=== PATIENT | female | born 1975 | race Caucasian/White ===

== ENCOUNTER → 2016-11-29 | Outpatient (CLI) | payer MEDICAID ==
[2016-11-29 07:52] LABS: ABSOLUTE EOSINOPHILS # (AUTO) 0.2 10^3/uL (0.0-0.6); ABSOLUTE LYMPHOCYTES (AUTO) 1.5 10^3/uL (0.5-4.7); ABSOLUTE MONOCYTES (AUTO) 0.4 10^3/uL (0.1-1.4); ABSOLUTE NEUT (AUTO) 3.5 10^3/uL (1.7-8.2); APPEARANCE,URINE CLEAR; BASOPHILS % (AUTO) 0.9 % (0-2); BILIRUBIN,URINE NEGATIVE (NEGATIVE); EOSINOPHILS % (AUTO) 4.3 % (0-6); GLUCOSE, URINE NEGATIVE (NEGATIVE); HEMATOCRIT 42.7 % (36.0-47.0); HEMOGLOBIN 14.3 g/dL (12.0-15.5); HGB HCT DIFFERENCE 0.2; KETONES,URINE NEGATIVE (NEGATIVE); LEUKOCYTE ESTERASE,URINE NEGATIVE (NEGATIVE); LYMPHOCYTES % (AUTO) 25.6 % (13-45); MEAN CORPUSCULAR HEMOGLOBIN 33.3 pg (27.0-33.4); MEAN CORPUSCULAR HGB CONC 33.4 g/dL (32.0-36.0); MEAN CORPUSCULAR VOLUME 100 fl (80-97); MONOCYTES % (AUTO) 7.6 % (3-13); NITRITE,URINE NEGATIVE (NEGATIVE); PROTEIN,URINE NEGATIVE (NEGATIVE); RED BLOOD COUNT 4.29 10^6/uL (3.72-5.28); RED CELL DISTRIBUTION WIDTH 12.8 % (11.5-14.0); SEGMENTED NEUTROPHILS % (AUTO) 61.6 % (42-78); URINE SPECIFIC GRAVITY 1.003; UROBILINOGEN,URINE NEGATIVE mg/dL (<2.0); WHITE BLOOD COUNT 5.7 10^3/uL (4.0-10.5)
[2016-11-29 08:13] LABS: ALBUMIN 3.9 g/dL (3.5-5.0); ANION GAP 11 (5-19); BLOOD UREA NITROGEN 23 mg/dL (7-20); CALCIUM 9.9 mg/dL (8.4-10.2); CARBON DIOXIDE 25 mmol/L (22-30); CHLORIDE 106 mmol/L (98-107); CREATININE RESULT 1.27 mg/dL (0.52-1.25); GLUCOSE 100 mg/dL (75-110); PHOSPHORUS 3.4 mg/dL (2.5-4.5); POTASSIUM 4.5 mmol/L (3.6-5.0); SODIUM 142.4 mmol/L (137-145)
[2016-11-30 10:49] LABS: VITAMIN D 25-HYDROXY 49.1 ng/mL (30.0-100.0)
[2016-11-30 11:38] LABS: CREATININE URINE 19.5 mg/dL (Not Estab.); MICROALBUMIN URINE 6.3 ug/mL (Not Estab.)
== END ==
LOC: OD 07:06
PROVIDERS: ATTEND Internal Medicine Nephrology
DX: N18.3 Chronic kidney disease, stage 3 (moderate) (principal); R35.0 Frequency of micturition
CPT/HCPCS: 36415; 80048; 81001; 82040; 82043; 82306; 82570; 83970; 84100; 85025

== ENCOUNTER → 2017-05-28 | Outpatient (CLI) | payer MEDICAID ==
[2017-05-28 09:22] LABS: ANION GAP 11 (5-19); BLOOD UREA NITROGEN 13 mg/dL (7-20); CALCIUM 9.4 mg/dL (8.4-10.2); CARBON DIOXIDE 22 mmol/L (22-30); CHLORIDE 109 mmol/L (98-107); CREATININE RESULT 1.05 mg/dL (0.52-1.25); GLUCOSE 92 mg/dL (75-110); POTASSIUM 4.6 mmol/L (3.6-5.0); SODIUM 142.4 mmol/L (137-145)
== END ==
LOC: OD 07:04
PROVIDERS: ATTEND Internal Medicine
DX: N18.3 Chronic kidney disease, stage 3 (moderate) (principal)
CPT/HCPCS: 36415; 80048

== ENCOUNTER → 2017-11-28 | Outpatient (CLI) | payer MEDICAID ==
[2017-11-28 08:23] LABS: ABSOLUTE EOSINOPHILS # (AUTO) 0.2 10^3/uL (0.0-0.6); ABSOLUTE LYMPHOCYTES (AUTO) 1.7 10^3/uL (0.5-4.7); ABSOLUTE MONOCYTES (AUTO) 0.5 10^3/uL (0.1-1.4); ABSOLUTE NEUT (AUTO) 4.4 10^3/uL (1.7-8.2); BASOPHILS % (AUTO) 0.6 % (0-2); EOSINOPHILS % (AUTO) 2.9 % (0-6); HEMOGLOBIN 13.8 g/dL (12.0-15.5); LYMPHOCYTES % (AUTO) 24.8 % (13-45); MEAN CORPUSCULAR HEMOGLOBIN 33.1 pg (27.0-33.4); MEAN CORPUSCULAR HGB CONC 33.7 g/dL (32.0-36.0); MEAN CORPUSCULAR VOLUME 98 fl (80-97); MONOCYTES % (AUTO) 7.3 % (3-13); PLATELET COUNT 209 10^3/uL (150-450); RED BLOOD COUNT 4.18 10^6/uL (3.72-5.28); RED CELL DISTRIBUTION WIDTH 13.3 % (11.5-14.0); SEGMENTED NEUTROPHILS % (AUTO) 64.4 % (42-78); TOTAL CELLS COUNTED % (AUTO) 100 %; WHITE BLOOD COUNT 6.8 10^3/uL (4.0-10.5)
[2017-11-28 08:47] LABS: APPEARANCE,URINE CLEAR; BILIRUBIN,URINE NEGATIVE (NEGATIVE); COLOR,URINE COLORLESS; GLUCOSE, URINE NEGATIVE (NEGATIVE); KETONES,URINE NEGATIVE (NEGATIVE); LEUKOCYTE ESTERASE,URINE NEGATIVE (NEGATIVE); NITRITE,URINE NEGATIVE (NEGATIVE); PROTEIN,URINE NEGATIVE (NEGATIVE); URINE SPECIFIC GRAVITY 1.002; UROBILINOGEN,URINE NEGATIVE mg/dL (<2.0)
[2017-11-28 08:49] LABS: ALBUMIN 4.1 g/dL (3.5-5.0); ANION GAP 8 (5-19); BLOOD UREA NITROGEN 17 mg/dL (7-20); CARBON DIOXIDE 26 mmol/L (22-30); CHLORIDE 108 mmol/L (98-107); GLUCOSE 91 mg/dL (75-110); PHOSPHORUS 3.9 mg/dL (2.5-4.5); POTASSIUM 4.8 mmol/L (3.6-5.0); SODIUM 141.9 mmol/L (137-145)
[2017-11-29 11:38] LABS: CREATININE URINE 15.3 mg/dL (Not Estab.); MICROALBUMIN URINE <3.0 ug/mL (Not Estab.)
== END ==
LOC: OD 07:53
PROVIDERS: ATTEND Internal Medicine Nephrology
DX: N05.9 Unspecified nephritic syndrome with unspecified morphologic changes (principal); N18.3 Chronic kidney disease, stage 3 (moderate)
CPT/HCPCS: 36415; 80048; 81001; 82040; 82043; 82306; 82570; 83970; 84100; 85025

== ENCOUNTER → 2018-05-26 | Outpatient (CLI) | payer MEDICAID ==
[2018-05-26 10:04] LABS: ANION GAP 12 (5-19); BLOOD UREA NITROGEN 24 mg/dL (7-20); CALCIUM 9.8 mg/dL (8.4-10.2); CARBON DIOXIDE 27 mmol/L (22-30); CHLORIDE 109 mmol/L (98-107); GLUCOSE 101 mg/dL (75-110); POTASSIUM 4.5 mmol/L (3.6-5.0); SODIUM 148.2 mmol/L (137-145)
== END ==
LOC: OD 07:56
PROVIDERS: ATTEND Internal Medicine Nephrology
DX: N18.3 Chronic kidney disease, stage 3 (moderate) (principal)
CPT/HCPCS: 36415; 80048

== ENCOUNTER → 2018-12-30 | Outpatient (CLI) | payer OTHER ==
[2018-12-30 16:26] LABS: ALANINE AMINOTRANSFERASE 26 U/L (9-52); ALBUMIN 4.2 g/dL (3.5-5.0); ALKALINE PHOSPHATASE 124 U/L (38-126); ANION GAP 6 (5-19); ASPARTATE AMINO TRANSFERASE 22 U/L (14-36); BILIRUBIN,DIRECT 0.2 mg/dL (0.0-0.4); BILIRUBIN,TOTAL 0.2 mg/dL (0.2-1.3); BLOOD UREA NITROGEN 12 mg/dL (7-20); CALCIUM 9.8 mg/dL (8.4-10.2); CARBON DIOXIDE 29 mmol/L (22-30); CHLORIDE 102 mmol/L (98-107); GLUCOSE 87 mg/dL (75-110); POTASSIUM 4.3 mmol/L (3.6-5.0); SODIUM 137.4 mmol/L (137-145); TOTAL PROTEIN 6.9 g/dL (6.3-8.2)
== END ==
LOC: OD 14:36
DX: F25.9 Schizoaffective disorder, unspecified (principal); N18.3 Chronic kidney disease, stage 3 (moderate); Z99.81 Dependence on supplemental oxygen; F41.8 Other specified anxiety disorders; G47.30 Sleep apnea, unspecified
CPT/HCPCS: 36415; 80053

== ENCOUNTER → 2018-12-30 | Outpatient (CLI) | payer OTHER ==
[~2018-12-30] MED LIST: ALBUTEROL SULFATE 0.083% NEB 2.5 MG/3 ML AMPUL NEB ONE
--- NOTE | 2019-01-04 13:59 | Pulmonary Function Test ---
Pulmonary Function Test Date of Procedure:: 01/04/19 INDICATION:: Dyspnea Referring Provider: Dr. Stephen Leyva Trench Pipe Layer: Mirna Ordoñez [employer]ER, IMMUNOCHEMIST - Report Spirometry: FVC 3.24 L 92% postbronchodilator 3.34 L 95% FEV1 1.94 L 66% postbronchodilator 2.25 L 77% FEV1/FVC % 60 postbronchodilator 68 predicted 84 FEF 25-75% 0.92 L 28% postbronchodilator 1.40 L 43% Diffusion Capactity: Diffusion capacity 22.3 72% DLCO/VA 4.40 101% Impression: Mild obstructive ventilatory defect with good response to bronchodilator therapy. Mild decrease in diffusion capacity.
== END ==
LOC: RT 12:11
DX: G47.30 Sleep apnea, unspecified (principal); F41.8 Other specified anxiety disorders
CPT/HCPCS: 94060; 94729

== ENCOUNTER 2020-05-14 15:59 | Inpatient (IN) | payer SELFPAY ==
--- NOTE | 2020-05-14 17:27 | ER Document Report ---
ED Respiratory Problem - General Chief Complaint: Shortness Of Breath Stated Complaint: SHORT OF BREATH,CONGESTION Time Seen by Provider: 05/14/20 16:54 Primary Care Provider: KACIE QUAN [NO LOCAL MD] - Follow up as needed Notes: CHIEF COMPLAINT: Shortness of breath HPI: 45-year-old female with history of cold agglutinin disease, chronic kidney disease, on home O2 at night for sleep apnea but not usually during the day presenting because she believes that she needs to use her oxygen during the day as well, is that she increase shortness of breath over the last 2 days. Does state that many years ago she had to have thoracentesis because of a pneumonia. 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 Has not had a fever recently no cough. Denies any concerns for COVID-19. ROS: See HPI - all other systems were reviewed and are otherwise negative Constitutional: no fever Eyes: no drainage, no blurred vision ENT: no runny nose, no sore throat Cardiovascular: no chest pain Resp: + SOB, no cough GI: no vomiting, no diarrhea, no abdominal pain : no dysuria Integumentary: no rash Allergy: no hives Musculoskeletal: no extremity pain or swelling Neurological: no numbness/tingling, no weakness MEDICATIONS: I agree with the patient medications as charted by the RN. ALLERGIES: I agree with the allergies as charted by the RN. PAST MEDICAL HISTORY/PAST SURGICAL HISTORY: Reviewed and agree as charted by RN. SOCIAL HISTORY: Reviewed and agree as charted by RN. FAMILY HISTORY: No significant familial comorbid conditions directly related to patient complaint EXAM: Reviewed vital signs as charted by RN. CONSTITUTIONAL: Alert and oriented and responds appropriately to questions. Well-appearing; well-nourished HEAD: Normocephalic; atraumatic EYES: PERRL; Conjunctivae clear, sclerae non-icteric ENT: normal nose; no rhinorrhea; moist mucous membranes; pharynx without lesions noted, no uvula edema or deviation, no tonsillar hypertrophy, phonation normal NECK: Supple without meningismus; non-tender; no cervical lymphadenopathy, no masses CARD: RRR; no murmurs, no clicks, no rubs, no gallops; symmetric distal pulses RESP: Normal chest excursion without splinting or tachypnea; breath sounds clear and equal bilaterally; no wheezes, no rhonchi, no rales, pulse oximetry 95% on room air not hypoxic ABD/GI: Obese, normal bowel sounds; non-distended; soft, non-tender, no rebound, no guarding; no palpable organomegaly or masses. BACK: The back appears normal and is non-tender to palpation, there is no CVA tenderness EXT: Normal ROM in all joints; non-tender to palpation; no cyanosis, no e ffusions, no edema SKIN: Normal color for age and race; warm; dry; good turgor; no acute lesions noted NEURO: Moves all extremities equally; Motor and sensory function intact PSYCH: The patient's mood and manner are appropriate. Grooming and personal hygiene are appropriate. MDM: 45-year-old female presenting for increased shortness of breath over the last 2 days. She has no COVID concerns, she is not specifically dyspneic with speaking but states she has exertional shortness of breath. Normally uses nasal cannula O2 3 L at night because of sleep apnea issues because she could not afford to have a sleep apnea test officially to get a CPAP machine. Will obtain screening cardiac labs I will add a d-dimer, chest x-ray TRAVEL OUTSIDE OF THE [place] IN LAST 30 DAYS: No - Related Data Allergies/Adverse Reactions: No Known Allergies Allergy (Unverified 11/16/12 15:38) Home Medications: Lasix, depikote, clonazapam, benzatropine, alanzapine Past Medical History - Social History Smoking Status: Unknown if Ever Smoked Family History: Reviewed & Not Pertinent Pulmonary Medical History: Reports: Hx Pneumonia Denies: Hx Tuberculosis Neurological Medical History: Denies: Hx Seizures Psychiatric Medical History: Reports: Hx Depression, Hx Schizoaffective Disorder Past Surgical History: Denies: Hx Hysterectomy, Hx Pacemaker - Immunizations Hx Pneumococcal Vaccination: 11/25/12 Physical Exam - Vital signs Vitals: Temp Pulse Resp BP Pulse Ox 98.4 F 87 20 113/67 95 05/14/20 16:07 05/14/20 16:07 05/14/20 16:07 05/14/20 16:07 05/14/20 16:07 Course - Re-evaluation Re-evalutation: 05/14/20 18:39 Patient's pulse oximetry does dip into the high 80s at 88 or 89% on room air when she is ambulating in the room. Patient's d-dimer was slightly high at 0.52, her creatinine is elevated at 2.13 discussed with the instrumentation technologist that cannot do CTA of the chest to rule out PE with a creatinine greater than 2 will need to obtain ventilation/perfusion scan, this will take several hours. Patient's other lab work does not show acute emergent abnormalities 05/14/20 23:19 There is an abnormality on the patient's ventilation/perfusion scan of the right middle lobe suggesting possible PE. I went spoke with the patient about this, on room air at rest her pulse oximetry is 87%. She does again report that over the last week she has had increasing shortness of breath episodes with any exertional activities. Discussed with attending Dr. Alvarado, will discuss with hospitalist for admission 05/14/20 23:[address] Maxwell, Hospitalist. I also spoke with the patient again. She reports mother had diabetes and father had esophageal cancer there is no family history of any clotting disorder she denies any past surgical history. Given the patient's creatinine will start patient on the heparin protocol and Dr. Maxwell will admit - Vital Signs Vital signs: Temp Pulse Resp BP Pulse Ox 97 F L 71 20 122/72 95 05/14/20 20:19 05/14/20 23:18 05/14/20 23:18 05/14/20 23:18 05/14/20 23:18 - Laboratory Result Diagrams: 05/14/20 17:34 05/14/20 17:34 Laboratory results interpreted by me: 05/14/20 05/14/20 05/14/20 17:34 17:34 17:34 RBC 3.33 L Hct 35.3 L MCV 106 H MCH 36.4 H RDW 14.1 H D-Dimer 0.52 H BUN 23 H Creatinine 2.13 H Est GFR ( Amer) 30 L Est GFR (MDRD) Non-Af 25 L Glucose 130 H Alkaline Phosphatase 137 H NT-Pro-B Natriuret Pep 05/14/20 17:34 RBC Hct MCV MCH RDW D-Dimer BUN Creatinine Est GFR ( Amer) Est GFR (MDRD) Non-Af Glucose Alkaline Phosphatase NT-Pro-B Natriuret Pep 326 H Discharge - Discharge Clinical Impression: Hypoxia Pulmonary embolism Qualifiers: Pulmonary embolism type: unspecified Chronicity: acute Acute cor pulmonale presence: unspecified Qualified Code(s): I26.99 - Other pulmonary embolism without acute cor pulmonale Condition: Fair Disposition: ADMITTED INPATIENT Admitting Provider: Hans (Hospitalist) Unit Admitted: Telemetry Referrals: [facility] [NO LOCAL MD] - Follow up as needed
[2020-05-14 17:52] LABS: ABSOLUTE EOSINOPHILS # (AUTO) 0.1 10^3/uL (0.0-0.6); ABSOLUTE LYMPHOCYTES (AUTO) 2.2 10^3/uL (0.5-4.7); ABSOLUTE MONOCYTES (AUTO) 0.8 10^3/uL (0.1-1.4); ABSOLUTE NEUT (AUTO) 4.5 10^3/uL (1.7-8.2); BASOPHILS % (AUTO) 0.3 % (0-2); EOSINOPHILS % (AUTO) 1.4 % (0-6); HEMATOCRIT 35.3 % (36.0-47.0); HEMOGLOBIN 12.1 g/dL (12.0-15.5); LYMPHOCYTES % (AUTO) 28.9 % (13-45); MEAN CORPUSCULAR HEMOGLOBIN 36.4 pg (27.0-33.4); MEAN CORPUSCULAR HGB CONC 34.3 g/dL (32.0-36.0); MEAN CORPUSCULAR VOLUME 106 fl (80-97); MONOCYTES % (AUTO) 10.8 % (3-13); PLATELET COUNT 224 10^3/uL (150-450); RED BLOOD COUNT 3.33 10^6/uL (3.72-5.28); RED CELL DISTRIBUTION WIDTH 14.1 % (11.5-14.0); SEGMENTED NEUTROPHILS % (AUTO) 58.6 % (42-78); TOTAL CELLS COUNTED % (AUTO) 100 %; WHITE BLOOD COUNT 7.6 10^3/uL (4.0-10.5)
[2020-05-14 18:08] LABS: APPEARANCE,URINE CLEAR; BILIRUBIN,URINE NEGATIVE (NEGATIVE); COLOR,URINE STRAW; GLUCOSE, URINE NEGATIVE (NEGATIVE); KETONES,URINE NEGATIVE (NEGATIVE); LEUKOCYTE ESTERASE,URINE NEGATIVE (NEGATIVE); NITRITE,URINE NEGATIVE (NEGATIVE); PROTEIN,URINE NEGATIVE (NEGATIVE); URINE SPECIFIC GRAVITY 1.003; UROBILINOGEN,URINE NEGATIVE mg/dL (<2.0)
[2020-05-14 18:15] LABS: ALBUMIN 4.3 g/dL (3.5-5.0); ALKALINE PHOSPHATASE 137 U/L (38-126); ANION GAP 9 (5-19); ASPARTATE AMINO TRANSFERASE 23 U/L (14-36); BILIRUBIN,DIRECT 0.1 mg/dL (0.0-0.4); BILIRUBIN,TOTAL 0.4 mg/dL (0.2-1.3); BLOOD UREA NITROGEN 23 mg/dL (7-20); CALCIUM 9.8 mg/dL (8.4-10.2); CARBON DIOXIDE 30 mmol/L (22-30); CHLORIDE 99 mmol/L (98-107); GLUCOSE 130 mg/dL (75-110); POTASSIUM 3.8 mmol/L (3.6-5.0); TOTAL PROTEIN 7.4 g/dL (6.3-8.2)
--- NOTE | 2020-05-14 18:24 | RADIOLOGY REPORT (SQ) ---
EXAM DESCRIPTION: CHEST SINGLE VIEW IMAGES COMPLETED DATE/TIME: 05/14/2020 5:01 pm REASON FOR STUDY: sob COMPARISON: 11/25/2012 EXAM PARAMETERS: NUMBER OF VIEWS: One view. TECHNIQUE: Single frontal radiographic view of the chest acquired. RADIATION DOSE: NA LIMITATIONS: None. FINDINGS: LUNGS AND PLEURA: There is improved aeration in both lungs. No focal consolidation or ple ural effusion. No pneumothorax. MEDIASTINUM AND HILAR STRUCTURES: No masses. Contour normal. HEART AND VASCULAR STRUCTURES: Heart normal in size. Normal vasculature. BONES: No acute findings. HARDWARE: None in the chest. OTHER: No other significant finding. IMPRESSION: No acute cardiopulmonary disease. TECHNICAL DOCUMENTATION: JOB ID: [id number] [email or web address] All Rights Reserved Reading location - IP/workstation name: [email or web address]
[2020-05-14 18:27] LABS: NT PRO BNP 326 pg/mL (<125)
[2020-05-14 18:29] LABS: TROPONIN I < 0.012 ng/mL
--- NOTE | 2020-05-14 19:16 | EKG REPORT ---
SEVERITY:- NORMAL ECG - SINUS RHYTHM : Confirmed by: Pratima Dominguez 14-May-2020 19:15:43
--- NOTE | 2020-05-14 23:09 | RADIOLOGY REPORT (SQ) ---
Perfusion lung scan: Clinical indication: 45-year old patient with hypoxia, for renal function. Comparison: Chest radiograph performed 05/14/2020. Technique: Following the intravenous injection of 5.45 mCi of technetium 99m labeled MAA, planar images of the chest were obtained in multiple projections. No ventilation imaging was obtained. Findings: There is homogeneous radiotracer distribution in the lungs on perfusion images. There is abnormal decreased radiotracer uptake seen within the right upper middle lobes which do not correspond with findings on recent chest radiograph. These are in a segmental distribution. This could represent evidence of a pulmonary artery embolism. Impression: There is abnormal decreased radiotracer uptake seen within the right upper middle lobes which do not correspond with findings on recent chest radiograph. These are in a segmental distribution. This could represent evidence of a pulmonary artery embolism.
[2020-05-14] MEDS ORDERED: HEPARIN SODIUM,PORCINE/D5W 25,000 UNIT/250 ML RTUINJ IV PRN (23:29)
[2020-05-14] MEDS ORDERED: HEPARIN SOD (PORCINE) 1,000 UNIT/ML 10 ML VIAL IV ONE (23:29)
[2020-05-14 23:43] LABS: INTERNATIONAL RATION (INR) 0.89
[2020-05-15] MEDS: HEPARIN SODIUM,PORCINE/D5W 25,000 UNIT/250 ML RTUINJ IV PRN ×2 (00:25→14:26)
[2020-05-15] MEDS ORDERED: MAG HYDROX/AL HYDROX/SIMETH SUSP 30 ML UDCUP PO PRN (00:40)
[2020-05-15] MEDS ORDERED: MAGNESIUM HYDROXIDE SUSP 30 ML UDCUP PO PRN (00:40)
[2020-05-15] MEDS ORDERED: ONDANSETRON HCL INJ/PF 4 MG/2 ML SDV IV PRN ×2 (00:40→11:00)
[2020-05-15] MEDS ORDERED: GUAIFENESIN SYRP 200 MG/10 ML UDC PO PRN (00:49)
[2020-05-15] MEDS ORDERED: LORAZEPAM INJ 2 MG/1 ML VIAL IV PRN (00:49)
[2020-05-15] MEDS ORDERED: ACETAMINOPHEN 325 MG TABLET PO PRN (00:49)
[2020-05-15] MEDS ORDERED: MELATONIN 5 MG TABLET PO PRN ×2 (00:49→01:30)
[2020-05-15] MEDS ORDERED: MORPHINE SULFATE 10 MG/ML INJ IV PRN ×4 (00:49→01:52)
[2020-05-15] MEDS: RINGERS SOLUTION,LACTATED 1,000 ML IV PRN ×4 (01:12→22:17)
[2020-05-15] MEDS ORDERED: HEPARIN SOD (PORCINE) 1,000 UNIT/ML 10 ML VIAL IV PRN (03:39)
[2020-05-15] MEDS: PANTOPRAZOLE SODIUM 40 MG TABLET.DR PO SCH (05:54)
--- NOTE | 2020-05-15 05:59 | PDOC H&P ---
History of Present Illness Admission Date/PCP: 05/14/20 23:47 No local PCP Patient complains of: Dyspnea History of Present Illness: KENJI CHESTER is a 45 year old female who presented the emergency room with a 2- day history of dyspnea. She admits progressively worsening dyspnea over the last 2 days, becoming severe today. Her dyspnea is worsened by exertion. Her dyspnea did improve modestly with use of her nighttime oxygen on a continuous basis during the day. She denies any associated or accompanying signs and symptoms. She denies prior similar episodes. She has not identified any additional aggravating or ameliorating factors for her dyspnea. In the emergency room she was found to have a VQ scan which showed a right middle lobe ventilation/perfusion mismatch highly suspicious for an acute pulmonary embolism. She was subsequently admitted to the hospital for further evaluation and treatment after initiation of the heparin protocol in the emergency room. Past Medical History Cardiac Medical History: Denies: Atrial Fibrillation, Coronary Artery Disease, DVT, Hyperlipidema, Hypertension, Pulmonary Embolism Pulmonary Medical History: Reports: Pneumonia, Sleep Apnea Denies: Asthma, Chronic Obstructive Pulmonary Disease (COPD), Tuberculosis EENT Medical History: Denies: Cataracts, Ears - Hearing aids Neurological Medical History: Denies: Multiple Sclerosis, Seizures Endocrine Medical History: Reports: Obesity Denies: Diabetes Mellitus Type 1, Diabetes Mellitus Type 2, Hyperthyroidism, Hypothyroidism Renal/ Medical History: Reports: Chronic Kidney Disease Denies: Nephrolithiasis Malignancy Medical History: Reports: None GI Medical History: Denies: Cirrhosis, Crohn's Disease, Gastroesophageal Reflux Disease, Hepatitis, Peptic Ulcer Disease, Ulcerative Colitis Musculoskeltal Medical History: Denies: Arthritis, Fibromyalgia Skin Medical History: Denies: Eczema, Psoriasis Psychiatric Medical History: Reports: Depression, Schizoaffective Disorder Denies: Alcohol Dependency, Substance Abuse, Tobacco Dependency Traumatic Medical History: Reports: None Hematology: Reports: Anemia, Other - Positive for cold agglutinins Denies: Bleeding Tendencies Infectious Medical History: Reports: None Past Surgical History Past Surgical History: Reports: Other - Thoracentesis Social History Information Source: Patient Lives with: Spouse/Significant other Smoking Status: Former Smoker Electronic Cigarette use?: No Hx Recreational Drug Use: No Drugs: None Hx Prescription Drug Abuse: No - Advance Directive Resuscitation Status: Full Code Surrogate healthcare decision maker:: Jacqueline Fung Family History Family History: denies: CAD, DM, Hypertension, Malignancy Parental Family History Reviewed: Yes Children Family History Reviewed: No Sibling(s) Family History Reviewed.: Yes Medication/Allergy Home Medications: Benztropine Mesylate [Cogentin 1 mg Tablet] 1 mg PO QHS 11/16/12 Divalproex Sodium [Depakote] 200 mg PO BID 11/16/12 Lamotrigine [Lamictal] 200 mg PO BID 11/16/12 [place] Carbonate 300 mg PO TID 11/16/12 Olanzapine [Zyprexa] 15 mg PO QHS 11/16/12 Propranolol HCl [Inderal 10 mg Tablet] 10 mg PO DAILY 11/17/12 Levofloxacin [Levaquin 750 mg Tablet] 750 mg PO DAILY #10 tablet 11/25/12 Allergies/Adverse Reactions: No Known Allergies Allergy (Unverified 11/16/12 15:38) Review of Systems Constitutional: ABSENT: chills, fever(s) Eyes: ABSENT: visual disturbances, other - Eye pain Ears: ABSENT: hearing changes, other - Ear pain Nose, Mouth, and Throat: ABSENT: headache(s), sore throat Cardiovascular: PRESENT: as per HPI, dyspnea on exertion. ABSENT: chest pain, edema, orthropnea, palpitations Respiratory: PRESENT: as per HPI, dyspnea. ABSENT: cough, hemoptysis, sputum Gastrointestinal: ABSENT: abdominal pain, constipation, diarrhea, nausea, vomiting Genitourinary: ABSENT: dysuria, hematuria Musculoskeletal: ABSENT: back pain, joint swelling Integumentary: ABSENT: pruritus, rash Neurological: ABSENT: confusion, convulsions, focal weakness, memory loss, syncope Psychiatric: ABSENT: anxiety, depression Endocrine: ABSENT: cold intolerance, heat intolerance Hematologic/Lymphatic: ABSENT: easy bleeding, easy bruising Allergic/Immunologic: ABSENT: seasonal rhinorrhea Physical Exam Vital Signs: Temp Pulse Resp BP Pulse Ox 97 F L 71 18 135/70 H 95 05/14/20 20:19 05/14/20 23:18 05/14/20 23:25 05/14/20 23:25 05/14/20 23:25 Intake & Output 05/13/20 05/14/20 05/15/20 23:59 23:59 23:59 Weight 130.635 kg General appearance: PRESENT: no acute distress, cooperative, morbidly obese, other - On supplemental oxygen at the time of my evaluation Head exam: PRESENT: atraumatic, normocephalic Eye exam: PRESENT: conjunctiva pink. ABSENT: conjunctival injection, scleral icterus Ear exam: PRESENT: normal external ear exam. ABSENT: bleeding, drainage Mouth exam: PRESENT: dry mucosa, neck supple Neck exam: ABSENT: thyromegaly, tracheal deviation Respiratory exam: PRESENT: clear to auscultation gopal, symmetrical, unlabored, other - On supplemental oxygen at time of my evaluation Cardiovascular exam: PRESENT: RRR. ABSENT: clicks, gallop, rubs Pulses: PRESENT: normal radial pulses, normal dorsalis pedis pul Vascular exam: PRESENT: normal capillary refill. ABSENT: pallor GI/Abdominal exam: PRESENT: normal bowel sounds, soft. ABSENT: tenderness Rectal exam: PRESENT: deferred Extremities exam: ABSENT: joint swelling, pedal edema Musculoskeletal exam: ABSENT: deformity, dislocation Neurological exam: PRESENT: alert, oriented to person, oriented to place, oriented to time, oriented to situation, CN II-XII grossly intact. ABSENT: motor sensory deficit Psychiatric exam: PRESENT: appropriate affect, normal mood Skin exam: PRESENT: dry, intact, warm. ABSENT: jaundice, rash, urticaria Results Laboratory Results: 05/14/20 17:34 05/14/20 17:34 05/14/20 05/14/20 05/14/20 17:34 17:34 17:34 WBC 7.6 RBC 3.33 L Hgb 12.1 Hct 35.3 L MCV 106 H MCH 36.4 H MCHC 34.3 RDW 14.1 H Plt Count 224 Seg Neutrophils % 58.6 Sodium 137.9 Potassium 3.8 Chloride 99 Carbon Dioxide 30 Anion Gap 9 BUN 23 H Creatinine 2.13 H Est GFR ( Amer) 30 L Glucose 130 H Calcium 9.8 Total Bilirubin 0.4 AST 23 Alkaline Phosphatase 137 H Total Protein 7.4 Albumin 4.3 Urine Color STRAW Urine Appearance CLEAR Urine pH 8.0 Ur Specific [place] 1.003 Urine Protein NEGATIVE Urine Glucose (UA) NEGATIVE Urine Ketones NEGATIVE Urine Blood NEGATIVE Urine Nitrite NEGATIVE Ur Leukocyte Esterase NEGATIVE Urine WBC (Auto) 1 05/14/20 17:34 Troponin I < 0.012 NT-Pro-B Natriuret Pep 326 H Impressions: Chest X-Ray 05/14/20 17:09 IMPRESSION: No acute cardiopulmonary disease. Assessment and Plan - Diagnosis (1) Acute pulmonary embolism without acute cor pulmonale Qualifiers: Pulmonary embolism type: other Qualified Code(s): I26.99 - Other pulmonary embolism without acute cor pulmonale Is this a current diagnosis for this admission?: Yes (2) Acute respiratory failure with hypoxia Is this a current diagnosis for this admission?: Yes (3) Acute kidney injury superimposed on chronic kidney disease Is this a current diagnosis for this admission?: Yes (4) Morbid obesity with BMI of 45.0-49.9, adult Is this a current diagnosis for this admission?: Yes - Plan Summary Summary: Patient will be admitted to a telemetry bed on the medical floor where she will receive routine supportive and symptomatic cares. She will be continued on the heparin protocol. She will use morphine sulfate 2 to 4 mg IV every 2 hours as needed for pain. She will use Ativan 1 mg IV every 4 hours as needed for anxiety or restlessness. She will receive IV fluids utilizing lactated Ringer solution at 167 mL/h. She will receive supplemental oxygen utilizing nasal cannula and/or noninvasive airway pressure support devices such as CPAP or BiPAP. She will be placed on a prerenal diet. CBCs, metabolic profiles, magnesium levels, PT/INR measurements, PTT measurements and other laboratory and/or radiographic evaluations will be obtained as needed. A registered dietitian consult will be obtained for the patient's morbid obesity. - Time Time Spent with patient: 15-24 minutes Medications reviewed and adjusted accordingly: Yes Anticipated Discharge Disposition: Home with Home Health Anticipated Discharge: Other - Undetermined - Inpatient Certification Based on my medical assessment, after consideration of the patient's comorbidities, presenting symptoms, or acuity I expect that the services needed warrant INPATIENT care.: Yes I certify that my determination is in accordance with my understanding of Medicare's requirements for reasonable and necessary INPATIENT services [42 CFR 412.3e].: Yes Medical Necessity: Need Close Monitoring Due to Risk of Patient Decompensation, Need For IV Fluids, Need For Continuous Telemetry Monitoring, Risk of Complication if Not Cared For in Hospital
[2020-05-15] MEDS: DOCUSATE SODIUM 100 MG CAPSULE PO SCH ×2 (09:42→17:23)
--- NOTE | 2020-05-15 16:42 | PDOC PROGRESS REPORT ---
Subjective Progress Note for:: 05/15/20 Subjective:: KENJI CHESTER is a 45 year old female who presented the emergency room with a 2- day history of dyspnea. She admits progressively worsening dyspnea over the last 2 days, becoming severe today. Her dyspnea is worsened by exertion. Her dyspnea did improve modestly with use of her nighttime oxygen on a continuous basis during the day. She denies any associated or accompanying signs and symptoms. She denies prior similar episodes. She has not identified any addit ional aggravating or ameliorating factors for her dyspnea. In the emergency room she was found to have a VQ scan which showed a right middle lobe ventilation/perfusion mismatch highly suspicious for an acute pulmonary embolism. She was subsequently admitted to the hospital for further evaluation and treatment after initiation of the heparin protocol in the emergency room. 05/15/2020. Saw patient this morning, comfortably sitting in bed no apparent distress, patient is stating that she is very nervous about this hospitalization and requiring about when he she can go home, otherwise denies any chest pain, shortness of breath, nausea, vomiting, diarrhea, constipation, fever, chills, urinary symptoms. Reason For Visit: ACUTE RIGHT MIDDLE LOBE PULMONARY EMBOLISM ACUTE Physical Exam Vital Signs: Temp Pulse Resp BP Pulse Ox 98.1 F 77 16 132/62 H 90 L 05/15/20 03:36 05/15/20 07:00 05/15/20 03:36 05/15/20 03:36 05/15/20 09:45 Intake & Output 05/14/20 05/15/20 05/16/20 06:59 06:59 06:59 Intake Total 404 1966 Output Total 1500 1600 Balance -1096 366 Weight 122.5 kg General appearance: PRESENT: no acute distress, morbidly obese Head exam: PRESENT: atraumatic, normocephalic Respiratory exam: PRESENT: clear to auscultation gopal. ABSENT: rales, rhonchi, wheezes Cardiovascular exam: PRESENT: RRR. ABSENT: diastolic murmur, rubs, systolic murmur GI/Abdominal exam: PRESENT: normal bowel sounds, soft. ABSENT: distended, guarding, mass, organolmegaly, rebound, tenderness Neurological exam: PRESENT: alert, awake, oriented to person, oriented to place, oriented to time, oriented to situation, CN II-XII grossly intact. ABSENT: motor sensory deficit Results Laboratory Results: 05/14/20 17:34 05/14/20 17:34 05/14/20 05/14/20 05/14/20 17:34 17:34 17:34 WBC 7.6 RBC 3.33 L Hgb 12.1 Hct 35.3 L MCV 106 H MCH 36.4 H MCHC 34.3 RDW 14.1 H Plt Count 224 Seg Neutrophils % 58.6 Sodium 137.9 Potassium 3.8 Chloride 99 Carbon Dioxide 30 Anion Gap 9 BUN 23 H Creatinine 2.13 H Est GFR ( Amer) 30 L Glucose 130 H Calcium 9.8 Total Bilirubin 0.4 AST 23 Alkaline Phosphatase 137 H Total Protein 7.4 Albumin 4.3 Urine Color STRAW Urine Appearance CLEAR Urine pH 8.0 Ur Specific [place] 1.003 Urine Protein NEGATIVE Urine Glucose (UA) NEGATIVE Urine Ketones NEGATIVE Urine Blood NEGATIVE Urine Nitrite NEGATIVE Ur Leukocyte Esterase NEGATIVE Urine WBC (Auto) 1 05/14/20 17:34 Troponin I < 0.012 NT-Pro-B Natriuret Pep 326 H Impressions: Chest X-Ray 05/14/20 17:09 IMPRESSION: No acute cardiopulmonary disease. Assessment and Plan - Diagnosis (1) Acute pulmonary embolism without acute cor pulmonale Qualifiers: Pulmonary embolism type: other Qualified Code(s): I26.99 - Other pulmonary embolism without acute cor pulmonale Is this a current diagnosis for this admission?: Yes Plan: Unprovoked. Denies any history of recent hospitalization, travel, trauma, previous DVT, OCP use, malignancy, immobilization. VQ scan positive for right middle lobe PE. Patient does not walk unfortunately does not have insurance and living with her mother and has not qualified for Medicaid in the past, her medical bills has been her mother. Patient is stating that she may not be able to pay for her medication if she is sent home on no new oral anticoagulants. Patient could be discharged on Coumadin but she is already on multiple antipsychotics which may interact with Coumadin and also patient will not be able to keep up with her frequent blood draws as she depends on her elderly monitor for transportation. I have consulted discharge planners and as per primary nurse patient discharged on Lovenox 1 mg/kg twice twice daily and can contact [facility] where she will receive assistance with her medications. Patient updated and she is in agreement with plan. Currently on heparin drip high dose. Will switch to Lovenox 1 mg/kg twice daily. I have consulted pharmacist to find out if her Lovenox needs to be renally adjusted as patient has history of CKD, as per pharmacist no adjustment needed if we are treating for PE. (2) Acute kidney injury superimposed on chronic kidney disease Is this a current diagnosis for this admission?: Yes Plan: Prerenal. Nonoliguric. Cautious volume restriction guided by volume status. Monitor electrolytes and replace as needed. Avoid nephrotoxic meds. If no improvement will consult nephrology. Outpatient PCP and nephrology follow-up. (3) Acute respiratory failure with hypoxia Is this a current diagnosis for this admission?: Yes (4) Morbid obesity with BMI of 45.0-49.9, adult Is this a current diagnosis for this admission?: Yes Plan: BMI 43.6. Diet and lifestyle modification recommended. Will obtain TSH, lipid panel and hemoglobin A1c. (5) Schizoaffective disorder Qualifiers: Schizoaffective disorder type: depressive Qualified Code(s): F25.1 - Schizoaffective disorder, depressive type Is this a current diagnosis for this admission?: Yes Plan: On Depakote, olanzapine, clonidine. Resume home meds. Outpatient PCP and psychiatry follow-up. Patient is not on lithium, was DC'd by her psychiatrist several years ago. (6) Anxiety Is this a current diagnosis for this admission?: Yes Plan: On Klonopin. Resume home meds. Outpatient PCP and psychiatry follow-up. - Plan Summary Summary: Patient will be admitted to a telemetry bed on the medical floor where she will receive routine supportive and symptomatic cares. She will be continued on the heparin protocol. She will use morphine sulfate 2 to 4 mg IV every 2 hours as needed for pain. She will use Ativan 1 mg IV every 4 hours as needed for anxiety or restlessness. She will receive IV fluids utilizing lactated Ringer solution at 167 mL/h. She will receive supplemental oxygen utilizing nasal cannula and/or noninvasive airway pressure support devices such as CPAP or BiPAP. She will be placed on a prerenal diet. CBCs, metabolic profiles, magnesium levels, PT/INR measurements, PTT measurements and other laboratory and/or radiographic evaluations will be obtained as needed. A registered dietitian consult will be obtained for the patient's morbid obesity. - Time Time Spent with patient: 25-34 minutes Smoking Cessation Education: 3 to 10 minutes Medications reviewed and adjusted accordingly: Yes Anticipated Discharge Disposition: Home, Self Care Anticipated Discharge: within 24 hours
[2020-05-15] MEDS ORDERED: PAROXETINE HCL 20 MG TABLET PO SCH (19:00)
[2020-05-15] MEDS ORDERED: OLANZAPINE 5 MG TABLET PO SCH (22:00)
[2020-05-15] MEDS: ENOXAPARIN SODIUM INJ 120 MG/0.8 ML DISP.SYRIN SUBCUT SCH (22:00)
[2020-05-15] MEDS ORDERED: BENZTROPINE MESYLATE 1 MG TABLET PO SCH (22:00)
[2020-05-15] MEDS ORDERED: DIVALPROEX SODIUM 250 MG TABLET.DR PO SCH (22:00)
[2020-05-15] MEDS ORDERED: (PENDING PHARMACY ID) (Divalproex Sodium [Depakote] 1,500 MG) PO SCH (22:00)
[2020-05-15] MEDS ORDERED: OLANZAPINE 20 MG PO SCH (22:00)
[2020-05-16] MEDS: PANTOPRAZOLE SODIUM 40 MG TABLET.DR PO SCH (05:13)
[2020-05-16 07:24] LABS: ABSOLUTE EOSINOPHILS # (AUTO) 0.2 10^3/uL (0.0-0.6); ABSOLUTE LYMPHOCYTES (AUTO) 1.8 10^3/uL (0.5-4.7); ABSOLUTE MONOCYTES (AUTO) 0.5 10^3/uL (0.1-1.4); ABSOLUTE NEUT (AUTO) 3.1 10^3/uL (1.7-8.2); BASOPHILS % (AUTO) 0.4 % (0-2); EOSINOPHILS % (AUTO) 2.9 % (0-6); HEMATOCRIT 34.3 % (36.0-47.0); HEMOGLOBIN 11.5 g/dL (12.0-15.5); LYMPHOCYTES % (AUTO) 32.1 % (13-45); MEAN CORPUSCULAR HEMOGLOBIN 36.3 pg (27.0-33.4); MEAN CORPUSCULAR HGB CONC 33.6 g/dL (32.0-36.0); MEAN CORPUSCULAR VOLUME 108 fl (80-97); MONOCYTES % (AUTO) 8.2 % (3-13); PLATELET COUNT 183 10^3/uL (150-450); RED BLOOD COUNT 3.18 10^6/uL (3.72-5.28); RED CELL DISTRIBUTION WIDTH 14.2 % (11.5-14.0); SEGMENTED NEUTROPHILS % (AUTO) 56.4 % (42-78); TOTAL CELLS COUNTED % (AUTO) 100 %; WHITE BLOOD COUNT 5.5 10^3/uL (4.0-10.5)
[2020-05-16 07:45] LABS: CHOLESTEROL 246.59 mg/dL (0-200)
[2020-05-16] MEDS: RINGERS SOLUTION,LACTATED 1,000 ML IV PRN (07:46)
[2020-05-16 07:51] LABS: ALBUMIN 3.9 g/dL (3.5-5.0); ALKALINE PHOSPHATASE 121 U/L (38-126); ANION GAP 9 (5-19); ASPARTATE AMINO TRANSFERASE 32 U/L (14-36); BILIRUBIN,TOTAL 0.3 mg/dL (0.2-1.3); BLOOD UREA NITROGEN 22 mg/dL (7-20); CALCIUM 9.8 mg/dL (8.4-10.2); CARBON DIOXIDE 26 mmol/L (22-30); CHLORIDE 105 mmol/L (98-107); GLUCOSE 151 mg/dL (75-110); POTASSIUM 4.3 mmol/L (3.6-5.0)
[2020-05-16 07:56] LABS: DIRECT LDL 115 mg/dL (<100)
[2020-05-16 08:00] LABS: TRIGLYCERIDES 834 mg/dL (<150)
[2020-05-16] MEDS: ENOXAPARIN SODIUM INJ 120 MG/0.8 ML DISP.SYRIN SUBCUT SCH (09:23)
[2020-05-16] MEDS: DOCUSATE SODIUM 100 MG CAPSULE PO SCH (09:25)
[2020-05-16] MEDS ORDERED: (PENDING PHARMACY ID) (Clonazepam [Clonazepam] 0.25 MG) PO SCH ×2 (10:00)
[2020-05-16 15:33] VITALS: BP 106/73
[2020-05-16] MEDS ORDERED: APIXABAN 5 MG TABLET PO SCH (18:00)
--- NOTE | 2020-05-17 19:29 | PDOC DISCHARGE SUMMARY ---
Impression - Admit/DC Date/PCP Admission Date/Primary Care Provider: 05/14/20 23:47 Discharge Date: 05/16/20 - Discharge Diagnosis (1) Acute kidney injury superimposed on chronic kidney disease Is this a current diagnosis for this admission?: Yes (2) Acute pulmonary embolism without acute cor pulmonale Is this a current diagnosis for this admission?: Yes (3) Acute respiratory failure with hypoxia Is this a current diagnosis for this admission?: Yes (4) Anxiety Is this a current diagnosis for this admission?: Yes (5) Morbid obesity with BMI of 45.0-49.9, adult Is this a current diagnosis for this admission?: Yes (6) Schizoaffective disorder Is this a current diagnosis for this admission?: Yes - Additional Information Resuscitation Status: Full Code Discharge Diet: Regular Discharge Activity: Activity As Tolerated, Balance Activity w/Rest, Slowly Increase Activity, Supervised Activity Referrals: [facility] [Outside] - 05/31/20 11:00 am SERVICES,DISABILITY DETERMINAT [NO LOCAL MD] - Follow up as needed Prescriptions: Apixaban [Eliquis 5 mg Tablet] 5 mg PO BID #60 tablet Home Medications: Benztropine Mesylate [Cogentin 1 mg Tablet] 1 mg PO QHS 11/16/12 Clonazepam 0.25 mg PO DAILY 05/15/20 Divalproex Sodium [Depakote] 1,500 mg PO QHS 05/15/20 Furosemide [Lasix 40 mg Tablet] 40 mg PO DAILY 05/15/20 Olanzapine 20 mg PO QHS 05/15/20 Paroxetine HCl [Paxil] 40 mg PO DAILY 05/15/20 Acetaminophen [Tylenol 325 mg Tablet] 650 mg PO Q4HP PRN tablet 05/16/20 Apixaban [Eliquis 5 mg Tablet] 5 mg PO BID #60 tablet 05/16/20 History of Present Illiness History of Present Illness: Per H&P by Dr. Cruz: KENJI CHESTER is a 45 year old female who presented the emergency room with a 2-day history of dyspnea. She admits progressively worsening dyspnea over the last 2 days, becoming severe today. Her dyspnea is worsened by exertion. Her dyspnea did improve modestly with use of her nighttime oxygen on a continuous basis during the day. She denies any associated or accompanying signs and symptoms. She denies prior similar episodes. She has not identified any additional aggravating or ameliorating factors for her dyspnea. In the emergency room she was found to have a VQ scan which showed a right middle lobe ventilation/perfusion mismatch highly suspicious for an acute pulmonary embolism. She was subsequently admitted to the hospital for further evaluation and treatment after initiation of the heparin protocol in the emergency room. Hospital Course Hospital Course: (1) Acute pulmonary embolism without acute cor pulmonale Unprovoked. Denies any history of recent hospitalization, travel, trauma, previous DVT, OCP use, malignancy, immobilization. Does admit to a significant sedentary lifestyle. VQ scan positive for right middle lobe PE. The patient was initially placed on a heparin drip and then transitioned to therapeutic Lovenox prior to discharge in anticipation that she would continue Lovenox afterward. Discharge planning was consulted to assist with medication needs. Unfortunately, patient did not qualify for Medicaid and per social work, [facility] could not provide assurance that they would be able to continue this medication. Long discussion had with patient regarding option for self pay of DOAC vs Coumadin vs Lovenox. Unfortunately, cost remained a significant barrier. Coumadin was considered, however, it quickly became apparent that the continued care in clinic would not be able to provide for routine PT/INR checks for management. [employer] was able to obtain a one-month voucher for LVL6. We discussed with the patient and provided the website and phone number to leave a pharmaceutical company to apply for [employer]. It was stressed that it was important that the patient follow-up with the [facility] as soon as possible to begin assisting with planning for future anticoagulation needs. (2) Acute kidney injury superimposed on chronic kidney disease Resolved. Prerenal. Nonoliguric. Outpatient PCP and nephrology follow-up. (3) Acute respiratory failure with hypoxia Reports that she already self pays for supplemental oxygen at night; desires to discharge home on continuous oxygen therapy. Arrangements have been made by discharge planning. Patient has been educated that if she finds that she is requiring more than her baseline 3 L/min that she should return to the emergency department immediately (4) Morbid obesity with BMI of 45.0-49.9, adult BMI 43.6. Diet and lifestyle modification recommended. (5) Schizoaffective disorder Continue Depakote, olanzapine, clonidine. Outpatient PCP and psychiatry follow-up. Patient is not on lithium, was DC'd by her psychiatrist several years ago. (6) Anxiety Outpatient PCP and psychiatry follow-up. Physical Exam Vital Signs: Temp Pulse Resp BP Pulse Ox 97.7 F 67 20 122/72 100 05/16/20 14:21 05/16/20 14:21 05/16/20 14:21 05/16/20 14:21 05/16/20 14:21 Intake & Output 05/16/20 05/17/20 05/18/20 06:59 06:59 06:59 Intake Total 5308 1662 Output Total 3200 2200 Balance 2108 -538 Weight 122.5 kg General appearance: PRESENT: no acute distress, cooperative, obese, well- developed, well-nourished Head exam: PRESENT: atraumatic, normocephalic Eye exam: PRESENT: conjunctiva pink, EOMI, PERRLA. ABSENT: scleral icterus Mouth exam: PRESENT: moist, tongue midline Respiratory exam: PRESENT: clear to auscultation gopal, symmetrical, unlabored, other - Baseline supplemental oxygen. ABSENT: rales, rhonchi, wheezes Cardiovascular exam: PRESENT: RRR. ABSENT: diastolic murmur, rubs, systolic murmur Pulses: PRESENT: normal dorsalis pedis pul Vascular exam: PRESENT: normal capillary refill Extremities exam: PRESENT: full ROM. ABSENT: calf tenderness, clubbing, pedal edema Musculoskeletal exam: PRESENT: ambulatory Neurological exam: PRESENT: alert, awake, oriented to person, oriented to place, oriented to time, oriented to situation, CN II-XII grossly intact. ABSENT: motor sensory deficit Psychiatric exam: PRESENT: appropriate affect, normal mood. ABSENT: homicidal ideation, suicidal ideation Skin exam: PRESENT: dry, intact, warm. ABSENT: cyanosis, rash Results Laboratory Results: WBC 5.5 10^3/uL (4.0-10.5) 05/16/20 06:25 RBC 3.18 10^6/uL (3.72-5.28) L 05/16/20 06:25 Hgb 11.5 g/dL (12.0-15.5) L 05/16/20 06:25 Hct 34.3 % (36.0-47.0) L 05/16/20 06:25 MCV 108 fl (80-97) H 05/16/20 06:25 MCH 36.3 pg (27.0-33.4) H 05/16/20 06:25 MCHC 33.6 g/dL (32.0-36.0) 05/16/20 06:25 RDW 14.2 % (11.5-14.0) H 05/16/20 06:25 Plt Count 183 10^3/uL (150-450) 05/16/20 06:25 Lymph % (Auto) 32.1 % (13-45) 05/16/20 06:25 [place] % (Auto) 8.2 % (3-13) 05/16/20 06:25 Eos % (Auto) 2.9 % (0-6) 05/16/20 06:25 Baso % (Auto) 0.4 % (0-2) 05/16/20 06:25 Absolute Neuts (auto) 3.1 10^3/uL (1.7-8.2) 05/16/20 06:25 Absolute Lymphs (auto) 1.8 10^3/uL (0.5-4.7) 05/16/20 06:25 Absolute Monos (auto) 0.5 10^3/uL (0.1-1.4) 05/16/20 06:25 Absolute Eos (auto) 0.2 10^3/uL (0.0-0.6) 05/16/20 06:25 Absolute Basos (auto) 0.0 10^3/uL (0.0-0.2) 05/16/20 06:25 Seg Neutrophils % 56.4 % (42-78) 05/16/20 06:25 PT 12.0 SEC (11.4-15.4) 05/14/20 23:27 INR 0.89 05/14/20 23:27 APTT 96.9 SEC (23.5-35.8) H D 05/15/20 06:50 D-Dimer 0.52 ug/mL (0.00-0.50) H 05/14/20 17:34 Sodium 140.0 mmol/L (137-145) 05/16/20 06:25 Sodium Cancelled 05/16/20 06:25 Potassium 4.3 mmol/L (3.6-5.0) 05/16/20 06:25 Potassium Cancelled 05/16/20 06:25 Chloride 105 mmol/L (98-107) 05/16/20 06:25 Chloride Cancelled 05/16/20 06:25 Carbon Dioxide 26 mmol/L (22-30) 05/16/20 06:25 Carbon Dioxide Cancelled 05/16/20 06:25 Anion Gap 9 (5-19) 05/16/20 06:25 Anion Gap Cancelled 05/16/20 06:25 BUN 22 mg/dL (7-20) H 05/16/20 06:25 BUN Cancelled 05/16/20 06:25 Creatinine 2.05 mg/dL (0.52-1.25) H 05/16/20 06:25 Creatinine Cancelled 05/16/20 06:25 Est GFR ( Amer) 32 (>60) L 05/16/20 06:25 Est GFR ( Amer) Cancelled 05/16/20 06:25 Est GFR (Non-Af Amer) Cancelled 05/16/20 06:25 Est GFR (MDRD) Non-Af 26 (>60) L 05/16/20 06:25 Est GFR (MDRD) Non-Af Cancelled 05/16/20 06:25 Glucose 151 mg/dL (75-110) H 05/16/20 06:25 Glucose Cancelled 05/16/20 06:25 Hemoglobin A1c % 6.9 % (4.7-6.0) H 05/16/20 06:25 Calcium 9.8 mg/dL (8.4-10.2) 05/16/20 06:25 Calcium Cancelled 05/16/20 06:25 Magnesium 2.4 mg/dL (1.6-2.3) H 05/16/20 06:25 Total Bilirubin 0.3 mg/dL (0.2-1.3) 05/16/20 06:25 Direct Bilirubin 0.0 mg/dL (0.0-0.4) 05/16/20 06:25 Neonat Total Bilirubin Not Reportable 05/16/20 06:25 Neonat Direct Bilirubin Not Reportable 05/16/20 06:25 Neonat Indirect Bili Not Reportable 05/16/20 06:25 AST 32 U/L (14-36) 05/16/20 06:25 ALT 18 U/L (<35) 05/16/20 06:25 Alkaline Phosphatase 121 U/L (38-126) 05/16/20 06:25 Troponin I < 0.012 ng/mL 05/14/20 17:34 NT-Pro-B Natriuret Pep 326 pg/mL (<125) H 05/14/20 17:34 Total Protein 7.0 g/dL (6.3-8.2) 05/16/20 06:25 Albumin 3.9 g/dL (3.5-5.0) 05/16/20 06:25 Triglycerides 834 mg/dL (<150) H 05/16/20 06:25 Cholesterol 246.59 mg/dL (0-200) H 05/16/20 06:25 LDL Cholesterol Direct 115 mg/dL (<100) H 05/16/20 06:25 VLDL Cholesterol, Calc UNABLE TO CALCULATE 05/16/20 06:25 HDL Cholesterol 35 mg/dL (>40) L 05/16/20 06:25 EGFR Cancelled 05/16/20 06:25 TSH 3.85 uIU/mL (0.47-4.68) 05/16/20 06:25 Urine Color STRAW 05/14/20 17:34 Urine Appearance CLEAR 05/14/20 17:34 Urine pH 8.0 (5.0-9.0) 05/14/20 17:34 Ur Specific [place] 1.003 05/14/20 17:34 Urine Protein NEGATIVE mg/dL (NEGATIVE) 05/14/20 17:34 Urine Glucose (UA) NEGATIVE mg/dL (NEGATIVE) 05/14/20 17:34 Urine Ketones NEGATIVE mg/dL (NEGATIVE) 05/14/20 17:34 Urine Blood NEGATIVE (NEGATIVE) 05/14/20 17:34 Urine Nitrite NEGATIVE (NEGATIVE) 05/14/20 17:34 Urine Bilirubin NEGATIVE (NEGATIVE) 05/14/20 17:34 Urine Urobilinogen NEGATIVE mg/dL (<2.0) 05/14/20 17:34 Ur Leukocyte Esterase NEGATIVE (NEGATIVE) 05/14/20 17:34 Urine WBC (Auto) 1 /HPF 05/14/20 17:34 Urine Bacteria (Auto) TRACE /HPF 05/14/20 17:34 Squamous Epi Cells Auto 1 /HPF 05/14/20 17:34 Urine Mucus (Auto) RARE /LPF 05/14/20 17:34 Urine Ascorbic Acid NEGATIVE (NEGATIVE) 05/14/20 17:34 [place] < 0.2 mEq/L (0.6-1.2) L 05/14/20 17:34 05/14/20 17:34 Troponin I < 0.012 NT-Pro-B Natriuret Pep 326 H Impressions: Chest X-Ray 05/14/20 17:09 IMPRESSION: No acute cardiopulmonary disease. Plan Plan of Treatment: Patient is discharged home in stable condition. She is advised to follow-up with her primary care provider within 1 week. She has been provided a one-month voucher for LVL6. She is also been provided with the website and phone number to apply for medication assistance through the [employer]. She is advised to take her medications as prescribed. Return to the emergency department as needed for concerning symptoms. Time Spent: Greater than 30 Minutes Stroke Is this a Stroke Patient?: No Acute Heart Failure - Is this a Heart Failure Patient?: No
== END 2020-05-16 16:30 | disposition home or self-care (01) | DRG 175 ==
LOC: ER 15:59 → EH 23:47 → 5 05-15 04:00
PROVIDERS: ADMIT Emergency Medicine; ATTEND Registered Nurse
PROC: 5A09357 Assistance with Respiratory Ventilation, Less than 24 Consecutive Hours, Continuous Positive Airway Pressure (ICD-10-PCS; principal; 2020-05-15)
DX: I26.99 Other pulmonary embolism without acute cor pulmonale (principal); J96.01 Acute respiratory failure with hypoxia; N17.9 Acute kidney failure, unspecified; Z68.42 Body mass index [BMI] 45.0-49.9, adult; N18.9 Chronic kidney disease, unspecified; F41.9 Anxiety disorder, unspecified; E66.01 Morbid (severe) obesity due to excess calories; D63.1 Anemia in chronic kidney disease; F25.1 Schizoaffective disorder, depressive type; Z79.899 Other long term (current) drug therapy; Z99.81 Dependence on supplemental oxygen; Z87.891 Personal history of nicotine dependence
CPT/HCPCS: 36415; 71045; 78580; 80053; 80061; 80178; 81001; 83036; 83735; 83880; 84443; 84484; 85025; 85379; 85610; 85730; 87070; 93005; 93010; 94660; 99285; A9540; J1644; J1650; J3490; J7120; Q9969

== ENCOUNTER 2020-05-31 12:06 | Emergency (ER) | payer SELFPAY ==
--- NOTE | 2020-05-31 12:25 | ER Document Report ---
ED Medical Screen (RME) - General Chief Complaint: Shortness Of Breath Stated Complaint: SHORT OF BREATH Time Seen by Provider: 05/31/20 12:18 TRAVEL OUTSIDE OF THE [place] IN LAST 30 DAYS: No - HPI Notes: 05/31/20 12:23 45-year-old female with a history of a right middle lobe PE that was diagnosed on May 14, patient was discharged on Eliquis resents to the emergency room from [facility] for shortness of breath that has become progressively worse over the last 3 days. Patient reports that she is having shortness of breath with rest and activity, states she has been checking her home pulse ox which has been 88% on room air at times. Denies any chest pain, fevers or chills. Patient has been taking her Eliquis daily. Patient does have oxygen at home, she does wear at nighttime only. I have greeted and performed a rapid initial assessment of this patient. A comprehensive ED assessment and evaluation of the patient, analysis of test results and completion of the medical decision making process will be conducted by additional ED providers. PHYSICAL EXAMINATION: GENERAL chronically ill well-nourished and in no acute distress. HEAD: Atraumatic, normocephalic. EYES: Pupils equal round extraocular movements intact, conjunctiva are normal. NECK: Normal range of motion CV: s1, s2 regular LUNGS: Breath sounds in upper lobes - Related Data Allergies/Adverse Reactions: No Known Allergies Allergy (Verified 05/31/20 12:21) Past Medical History - Past Medical History Cardiac Medical History: Denies: Hx Atrial Fibrillation, Hx Coronary Artery Disease, Hx DVT, Hx Hypercholesterolemia, Hx Hypertension, Hx Pulmonary Embolism Pulmonary Medical History: Reports: Hx Pneumonia, Hx Sleep Apnea Denies: Hx Asthma, Hx COPD, Hx Tuberculosis Neurological Medical History: Denies: Hx Seizures Endocrine Medical History: Denies: Hx Diabetes Mellitus Type 1, Hx Diabetes Mellitus Type 2, Hx Hyperthyroidism, Hx Hypothyroidism GI Medical History: Denies: Hx Cirrhosis, Hx Crohn's Disease, Hx Gastroesophageal Reflux Disease, Hx Hepatitis, Hx Ulcerative Colitis Musculoskeltal Medical History: Denies Hx Arthritis, Denies Hx Fibromyalgia Skin Medical History: Denies Hx Eczema, Denies Hx Psoriasis Psychiatric Medical History: Reports: Hx Depression, Hx Schizoaffective Disorder Infectious Medical History: Denies: Hx Hepatitis Past Surgical History: Reports: Other - Thoracentesis. Denies: Hx Hysterectomy, Hx Pacemaker Physical Exam - Vital signs Vitals: Temp Pulse Resp BP Pulse Ox 98.4 F 78 18 107/65 95 05/31/20 12:16 05/31/20 12:16 05/31/20 12:16 05/31/20 12:16 05/31/20 12:16 Course - Vital Signs Vital signs: Temp Pulse Resp BP Pulse Ox 98.4 F 78 18 107/65 95 05/31/20 12:16 05/31/20 12:16 05/31/20 12:16 05/31/20 12:16 05/31/20 12:16
[2020-05-31 13:21] LABS: APPEARANCE,URINE CLEAR; BILIRUBIN,URINE NEGATIVE (NEGATIVE); COLOR,URINE COLORLESS; GLUCOSE, URINE NEGATIVE (NEGATIVE); KETONES,URINE NEGATIVE (NEGATIVE); LEUKOCYTE ESTERASE,URINE NEGATIVE (NEGATIVE); NITRITE,URINE NEGATIVE (NEGATIVE); PROTEIN,URINE NEGATIVE (NEGATIVE); URINE SPECIFIC GRAVITY 1.003; UROBILINOGEN,URINE NEGATIVE mg/dL (<2.0)
[2020-05-31 13:29] LABS: HEMATOCRIT 33.1 % (36.0-47.0); HEMOGLOBIN 11.4 g/dL (12.0-15.5); MEAN CORPUSCULAR HEMOGLOBIN 36.1 pg (27.0-33.4); MEAN CORPUSCULAR HGB CONC 34.5 g/dL (32.0-36.0); PLATELET COUNT 242 10^3/uL (150-450); RED BLOOD COUNT 3.17 10^6/uL (3.72-5.28); RED CELL DISTRIBUTION WIDTH 13.6 % (11.5-14.0); WHITE BLOOD COUNT 8.1 10^3/uL (4.0-10.5)
[2020-05-31 13:33] LABS: PROTHROMBIN TIME 13.4 SEC (11.4-15.4)
[2020-05-31 13:34] LABS: PARTIAL THROMBOPLASTIN TIME 38.4 SEC (23.5-35.8)
[2020-05-31 13:49] LABS: ABSOLUTE LYMPHOCYTES# (MANUAL) 2.9 10^3/uL (0.5-4.7); BAND NEUTROPHILS % (MANUAL) 1 % (3-5); BASOPHILS % (MANUAL) 0 % (0-2); LYMPHOCYTES % (MANUAL) 34 % (13-45); MEAN CORPUSCULAR VOLUME 104 fl (80-97); SEGMENTED NEUTROPHILS % (MAN) 56 % (42-78); TOTAL CELLS COUNTED 100
[2020-05-31 13:50] LABS: ABSOLUTE MONOCYTES # (MANUAL) 0.5 10^3/uL (0.1-1.4); EOSINOPHILS % (MANUAL) 1 % (0-6); MONOCYTES % (MANUAL) 6 % (3-13); PLATELET CLUMPS PRESENT; PLATELET COMMENT ADEQUATE; RBC MORPHOLOGY COMMENT NORMO-CYTIC/CHROMIC
[2020-05-31 13:52] LABS: ALBUMIN 4.2 g/dL (3.5-5.0); ALKALINE PHOSPHATASE 140 U/L (38-126); ANION GAP 10 (5-19); ASPARTATE AMINO TRANSFERASE 21 U/L (14-36); BILIRUBIN,DIRECT 0.1 mg/dL (0.0-0.4); BILIRUBIN,TOTAL 0.4 mg/dL (0.2-1.3); BLOOD UREA NITROGEN 28 mg/dL (7-20); CARBON DIOXIDE 30 mmol/L (22-30); CHLORIDE 97 mmol/L (98-107); GLUCOSE 147 mg/dL (75-110); POTASSIUM 3.4 mmol/L (3.6-5.0); TOTAL PROTEIN 7.6 g/dL (6.3-8.2)
--- NOTE | 2020-05-31 13:57 | ER Document Report ---
ED General - General Chief Complaint: Shortness Of Breath Stated Complaint: SHORT OF BREATH Time Seen by Provider: 05/31/20 12:18 TRAVEL OUTSIDE OF THE [place] IN LAST 30 DAYS: No - HPI Patient complains to provider of: SOB Notes: Diagnosed with pulmonary embolus approximately 2 weeks ago presents with increasing shortness of breath for the last 5 days. Patient has been compliant with her Eliquis therapy. States the first week she was feeling better but is now feeling worse and worse. Patient has history of asthma. Patient states she was checking her pulse ox at home was in the upper 80s, presents emergency department pulse ox 93% on room air. Denies chest pain - Related Data Allergies/Adverse Reactions: No Known Allergies Allergy (Verified 05/31/20 12:21) Home Medications: lasix, eliquis, depakote, paxil, zyprexa, benzotropine, clonazepam. Past Medical History - Social History Smoking Status: Former Smoker Chew tobacco use (# tins/day): No Frequency of alcohol use: None Drug Abuse: None Family History: denies: CAD, DM, Hypertension, Malignancy Patient has homicidal ideation: No - Past Medical History Cardiac Medical History: Denies: Hx Atrial Fibrillation, Hx Coronary Artery Disease, Hx DVT, Hx Hypercholesterolemia, Hx Hypertension, Hx Pulmonary Embolism Pulmonary Medical History: Reports: Hx Pneumonia, Hx Sleep Apnea Denies: Hx Asthma, Hx COPD, Hx Tuberculosis Neurological Medical History: Denies: Hx Seizures Endocrine Medical History: Denies: Hx Diabetes Mellitus Type 1, Hx Diabetes Mellitus Type 2, Hx Hyperthyroidism, Hx Hypothyroidism GI Medical History: Denies: Hx Cirrhosis, Hx Crohn's Disease, Hx Gastroesophageal Reflux Disease, Hx Hepatitis, Hx Ulcerative Colitis Musculoskeletal Medical History: Denies Hx Arthritis, Denies Hx Fibromyalgia Skin Medical History: Denies Hx Eczema, Denies Hx Psoriasis Psychiatric Medical History: Reports: Hx Depression, Hx Schizoaffective Disorder Infectious Medical History: Denies: Hx Hepatitis Past Surgical History: Reports: Other - Thoracentesis. Denies: Hx Hysterectomy, Hx Pacemaker - Immunizations Hx Pneumococcal Vaccination: 11/25/12 Review of Systems - Review of Systems Notes: REVIEW OF SYSTEMS: CONSTITUTIONAL: -fevers, -chills EENT: -eye pain, -difficulty swallowing, -nasal congestion CARDIOVASCULAR: -chest pain, -syncope. RESPIRATORY: shortness of breath GASTROINTESTINAL: -abdominal pain, -nausea, -vomiting, -diarrhea GENITOURINARY: -dysuria, -hematuria MUSCULOSKELETAL: -back pain, -neck pain SKIN: -rash or skin lesions. HEMATOLOGIC: -easy bruising or bleeding. LYMPHATIC: -swollen, enlarged glands. NEUROLOGICAL: -altered mental status or loss of consciousness, -headache, - neurologic symptoms PSYCHIATRIC: -anxiety, -depression. ALL OTHER SYSTEMS REVIEWED AND NEGATIVE. Physical Exam - Vital signs Vitals: Temp Pulse Resp BP Pulse Ox 98.4 F 78 18 107/65 95 05/31/20 12:16 05/31/20 12:16 05/31/20 12:16 05/31/20 12:16 05/31/20 12:16 - Notes Notes: PHYSICAL EXAMINATION: GENERAL: Well-appearing, well-nourished and in no acute distress. HEAD: Atraumatic, normocephalic. EYES: Pupils equal round, sclera anicteric, conjunctiva are normal. ENT: Surgical mask in place. RESP: Mild respiratory distress, tachypnea NECK: Normal range of motion, LUNGS: No respiratory Distress, normal chest rise EXTREMITIES: Normal range of motion, No cyanosis. NEUROLOGICAL: Cranial nerves grossly intact. Normal speech, PSYCH: Normal mood, normal affect. SKIN: Warm, Dry, Course - Re-evaluation Re-evalutation: 05/31/20 14:06 Ill-appearing female presents with hypoxia and tachypnea. Has underlying history of asthma, will provide numerous breathing treatments in the emergency department, the patient has elevated creatinine, will obtain CAT scan without contrast for structural evaluation, will also obtain VQ scan 05/31/20 15:28 Patient is extensive lab work-up shows no leukocytosis, normal troponin, EKG is nonischemic Mild elevation in proBNP. Patient does have history of heart failure has daily Lasix. Will be given additional dose of Lasix in the emergency department Patient is encouraged to double her Lasix dose for the next [address] chest shows no acute process does show some chronic findings. VQ scan also obtained shows no clot burden. Patient given some breathing treatments feeling markedly improved. Patient will be discharged home improved follow-up PCP and return if any worsens or changes - Vital Signs Vital signs: Temp Pulse Resp BP Pulse Ox 98.4 F 78 14 142/81 H 95 05/31/20 12:16 05/31/20 12:16 05/31/20 14:01 05/31/20 14:00 05/31/20 14:01 - Laboratory Result Diagrams: 05/31/20 13:14 05/31/20 13:14 Laboratory results interpreted by me: 05/31/20 05/31/20 05/31/20 13:14 13:14 13:14 RBC 3.17 L Hgb 11.4 L Hct 33.1 L MCV 104 H D MCH 36.1 H Band Neutrophils % 1 L APTT 38.4 H Potassium 3.4 L Chloride 97 L BUN 28 H Creatinine 2.18 H Est GFR ( Amer) 29 L Est GFR (MDRD) Non-Af 24 L Glucose 147 H Alkaline Phosphatase 140 H NT-Pro-B Natriuret Pep 05/31/20 13:14 RBC Hgb Hct MCV MCH Band Neutrophils % APTT Potassium Chloride BUN Creatinine Est GFR ( Amer) Est GFR (MDRD) Non-Af Glucose Alkaline Phosphatase NT-Pro-B Natriuret Pep 220 H Critical Care Note - Critical Care Note Total time excluding time spent on procedures (mins): 34 Discharge - Discharge Clinical Impression: SOB (shortness of breath) Condition: Stable Disposition: HOME, SELF-CARE Instructions: Dyspnea, Nonspecific ([facility]) Additional Instructions: See your PCP
[2020-05-31 14:02] LABS: NT PRO BNP 220 pg/mL (<125)
[2020-05-31 14:04] LABS: TROPONIN I < 0.012 ng/mL
--- NOTE | 2020-05-31 14:40 | RADIOLOGY REPORT (SQ) ---
EXAM DESCRIPTION: CT CHEST WITHOUT IMAGES COMPLETED DATE/TIME: 05/31/2020 2:21 pm REASON FOR STUDY: SOB COMPARISON: 05/14/2020, 11/25/2012, 11/23/2012, 11/17/2012 TECHNIQUE: CT scan performed of the chest without intravenous contrast. Images reviewed with lung, soft tissue and bone windows. Reconstructed coronal and sagittal MPR images reviewed. All images st ored on PACS. All CT scanners at this facility use dose modulation, iterative reconstruction, and/or weight based d osing when appropriate to reduce radiation dose to as low as reasonably achievable (ALARA). [facility]: Dose Right [facility]: CareDose [facility]: Dose Right [facility]: Teradose 4D [facility]: [employer] RADIATION DOSE: CT Rad equipment meets quality standard of care and radiation dose reduction techniq ues were employed. CTDIvol: 19.7 mGy. DLP: 756 mGy-cm. mGy. LIMITATIONS: No technical limitations. FINDINGS: LUNGS AND PLEURA: Masslike calcification is seen along the anterior/ inferior aspect of th e left major fissure ; of note, this occurs in the area of a previous infectious process demonstrated on 2013 imaging. Right lower lobe scarring. Scattered calcified pulmonary nodules. No focal conso lidation. No pleural effusion. No pneumothorax. HILAR AND MEDIASTINAL STRUCTURES: No identified masses or abnormal nodes. No obvious aneurysm. HEART AND VASCULAR STRUCTURES: No aneurysm. No pericardial effusion. UPPER ABDOMEN: No significant findings. Limited exam. THYROID AND OTHER SOFT TISSUES: No masses. No adenopathy. BONES: No significant finding. HARDWARE: None in the chest. OTHER: No other significant findings. IMPRESSION: No evidence of acute pulmonary process. Calcifications seen along the left major fissur e are favored to represent postinflammatory sequela related to previous infectious process demonstrat ed on 2013 imaging. TECHNICAL DOCUMENTATION: JOB ID: [id number] Quality ID # [id number]: Final reports with documentation of one or more dose reduction techniques (e.g., Au tomated exposure control, adjustment of the mA and/or kV according to patient size, use of iterative reconstruction technique) 2010 [employer]- All Rights Reserved Reading location - IP/workstation name: [email or web address]
[2020-05-31] MEDS: IPRATROPIUM/ALBUTEROL 0.5-2.5 MG/3 ML AMPUL NEB ONE ×3 (14:48)
--- NOTE | 2020-05-31 15:14 | RADIOLOGY REPORT (SQ) ---
EXAM DESCRIPTION: NM LUNG PERFUSION SCAN IMAGES COMPLETED DATE/TIME: 05/31/2020 2:53 pm REASON FOR STUDY: SOB COMPARISON: 05/14/2020 and 05/31/2020 RADIONUCLIDE AND DOSE: 5.3 millicuries TC-99m MAA The route of agent administration: Intravenous TECHNIQUE: Eight views of the lungs acquired following injection of MAA. LIMITATIONS: None. FINDINGS: PERFUSION: Linear photopenia seen along the anterior, inferior aspect of the left major fi ssure likely correlates to presumed postinflammatory calcifications in this region demonstrated on co mparison CT imaging. The small focus of photopenia seen involving the right upper lobe on the RODRIGUEZ im age is similar to if not smaller than that seen on comparison imaging. A small amount of scarring is seen in this region without evidence of pulmonary infarct.. OTHER: No other significant finding. IMPRESSION: Overall stable perfusion examination demonstrating a small focus photopenia involving th e right upper lobe ; while pulmonary embolus is not excluded, this is a chronic perfusion finding wit hout demonstrated pulmonary infarct on CT imaging. TECHNICAL DOCUMENTATION: JOB ID: [id number] 2010 [employer]- All Rights Reserved Reading location - IP/workstation name: [email or web address]
[2020-05-31] MEDS: FUROSEMIDE INJ/PF 40 MG/4 ML SDV IV ONE (16:29)
[2020-05-31] MEDS: POTASSIUM CHLORIDE 20 MEQ PACKET PO ONE (16:29)
[2020-05-31 16:39] VITALS: BP 119/62
--- NOTE | 2020-06-01 15:11 | EKG REPORT ---
SEVERITY:- NORMAL ECG - SINUS RHYTHM : Confirmed by: Simone Weber MD 01-Jun-2020 15:10:49
== END 2020-05-31 17:00 | disposition home or self-care (01) ==
LOC: ER 12:06
DX: R06.02 Shortness of breath (principal); R09.02 Hypoxemia; R06.82 Tachypnea, not elsewhere classified; Z79.01 Long term (current) use of anticoagulants; J45.909 Unspecified asthma, uncomplicated; Z79.899 Other long term (current) drug therapy; Z87.891 Personal history of nicotine dependence
CPT/HCPCS: 93005; 99285; 96374; 36415; 83735; 85025; 85610; 85730; 80053; 81001; 84484; 83880; 78580; 71250; 93010; A9540; J1940; Q9969; J3490

== ENCOUNTER → 2020-06-02 | Outpatient (CLI) | payer SELFPAY ==
[2020-06-02 11:40] LABS: HEMATOCRIT 32.1 % (36.0-47.0); HEMOGLOBIN 11.3 g/dL (12.0-15.5); MEAN CORPUSCULAR HEMOGLOBIN 36.4 pg (27.0-33.4); MEAN CORPUSCULAR HGB CONC 35.2 g/dL (32.0-36.0); MEAN CORPUSCULAR VOLUME 103 fl (80-97); PLATELET COUNT 223 10^3/uL (150-450); RED CELL DISTRIBUTION WIDTH 13.5 % (11.5-14.0)
[2020-06-02 11:41] LABS: APPEARANCE,URINE CLEAR; BILIRUBIN,URINE NEGATIVE (NEGATIVE); COLOR,URINE STRAW; GLUCOSE, URINE 50 mg/dL (NEGATIVE); KETONES,URINE NEGATIVE (NEGATIVE); LEUKOCYTE ESTERASE,URINE TRACE (NEGATIVE); NITRITE,URINE NEGATIVE (NEGATIVE); PROTEIN,URINE NEGATIVE (NEGATIVE); URINE SPECIFIC GRAVITY 1.004; UROBILINOGEN,URINE NEGATIVE mg/dL (<2.0)
[2020-06-02 11:58] LABS: ALBUMIN 4.1 g/dL (3.5-5.0); ALKALINE PHOSPHATASE 173 U/L (38-126); ANION GAP 10 (5-19); ASPARTATE AMINO TRANSFERASE 23 U/L (14-36); BILIRUBIN,DIRECT 0.1 mg/dL (0.0-0.4); BILIRUBIN,TOTAL 0.4 mg/dL (0.2-1.3); BLOOD UREA NITROGEN 23 mg/dL (7-20); CALCIUM 9.8 mg/dL (8.4-10.2); CARBON DIOXIDE 27 mmol/L (22-30); CHLORIDE 103 mmol/L (98-107); CHOLESTEROL 234.38 mg/dL (0-200); GLUCOSE 158 mg/dL (75-110); POTASSIUM 4.2 mmol/L (3.6-5.0); TOTAL PROTEIN 7.3 g/dL (6.3-8.2)
[2020-06-02 12:11] LABS: DIRECT LDL 128 mg/dL (<100)
[2020-06-02 12:16] LABS: TRIGLYCERIDES 611 mg/dL (<150)
[2020-06-02 13:08] LABS: ABSOLUTE LYMPHOCYTES# (MANUAL) 1.8 10^3/uL (0.5-4.7); ABSOLUTE MONOCYTES # (MANUAL) 0.4 10^3/uL (0.1-1.4); BASOPHILS % (MANUAL) 0 % (0-2); EOSINOPHILS % (MANUAL) 3 % (0-6); LYMPHOCYTES % (MANUAL) 25 % (13-45); MONOCYTES % (MANUAL) 5 % (3-13); SEGMENTED NEUTROPHILS % (MAN) 67 % (42-78); TOTAL CELLS COUNTED 100
[2020-06-02 13:23] LABS: PLATELET COMMENT ADEQUATE
== END ==
LOC: CCC 09:47
PROVIDERS: ATTEND Family Medicine
DX: Z13.9 Encounter for screening, unspecified (principal)
CPT/HCPCS: 36415; 80053; 80061; 81001; 83036; 84443; 85025

== ENCOUNTER → 2020-06-09 | Outpatient (CLI) | payer OTHER ==
[2020-06-09 16:12] LABS: IRON(TIBC) 72.5 ug/dL (37-170)
== END ==
LOC: OD 13:17
PROVIDERS: ATTEND Family Medicine
DX: D64.9 Anemia, unspecified (principal)
CPT/HCPCS: 36415; 82607; 82746; 83540; 83550

== ENCOUNTER 2020-07-02 13:48 | Emergency (ER) | payer SELFPAY ==
--- NOTE | 2020-07-02 14:11 | ER Document Report ---
ED Respiratory Problem - General Chief Complaint: Shortness Of Breath Stated Complaint: SHORTNESS OF BREATH Time Seen by Provider: 07/02/20 14:05 Primary Care Provider: [facility] [Primary Care Provider] - Follow up as needed Notes: CHIEF COMPLAINT: Shortness of breath for 1 day HPI: 45-year-old morbidly obese female presenting for shortness of breath for 1 day. No active chest pain. States intermittently she feels like she might have had some tightness that changed with position and movement only. No swelling of the legs. Patient states she thought she was diagnosed in April of this year with a blood clot and is on Eliquis. She states that she was here in May and they told her that she might have CHF. 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 No abdominal pain nausea vomiting. No cough or fever. She states she has not concerned about COVID ROS: See HPI - all other systems were reviewed and are otherwise negative Constitutional: no fever Eyes: no drainage, no blurred vision ENT: no runny nose, no sore throat Cardiovascular: no chest pain Resp: + SOB, no cough GI: no vomiting, no diarrhea, no abdominal pain : no dysuria Integumentary: no rash Allergy: no hives Musculoskeletal: no extremity pain or swelling Neurological: no numbness/tingling, no weakness MEDICATIONS: I agree with the patient medications as charted by the RN. ALLERGIES: I agree with the allergies as charted by the RN. PAST MEDICAL HISTORY/PAST SURGICAL HISTORY: Reviewed and agree as charted by RN. SOCIAL HISTORY: Reviewed and agree as charted by RN. FAMILY HISTORY: No significant familial comorbid conditions directly related to patient complaint EXAM: Reviewed vital signs as charted by RN. CONSTITUTIONAL: Alert and oriented and responds appropriately to questions. Well-appearing; well-nourished HEAD: Normocephalic; atraumatic EYES: PERRL; Conjunctivae clear, sclerae non-icteric ENT: normal nose; no rhinorrhea; moist mucous membranes; pharynx without lesions noted, no uvula edema or deviation, no tonsillar hypertrophy, phonation normal NECK: Supple without meningismus; non-tender; no cervical lymphadenopathy, no masses CARD: RRR; no murmurs, no clicks, no rubs, no gallops; symmetric distal pulses RESP: Normal chest excursion without splinting or tachypnea; breath sounds clear and equal bilaterally; no wheezes, no rhonchi, no rales, pulse oximetry 97% on room air not hypoxic. Patient does not become dyspneic with speaking ABD/GI: Obese, normal bowel sounds; non-distended; soft, non-tender, no rebound, no guarding; no palpable organomegaly or masses. BACK: The back appears normal and is non-tender to palpation, there is no CVA tenderness EXT: Normal ROM in all joints; non-tender to palpation; no cyanosis, no effusions, no edema SKIN: Normal color for age and race; warm; dry; good turgor; no acute lesions noted NEURO: Moves all extremities equally; Motor and sensory function intact PSYCH: The patient's mood and manner are appropriate. Grooming and personal hygiene are appropriate. MDM: 45-year-old female presenting with dyspnea for 1 day. On review of the records she had a CT of the chest in May of this year that did not show evidence of a PE. The CT read favored scarring or chronic changes. Given patient's age will obtain 1 set of screening cardiac labs, BNP, chest x-ray. She declines COVID testing TRAVEL OUTSIDE OF THE [place] IN LAST 30 DAYS: No - Related Data Allergies/Adverse Reactions: No Known Allergies Allergy (Verified 05/31/20 12:21) Past Medical History - Social History Smoking Status: Unknown if Ever Smoked Family History: denies: CAD, DM, Hypertension, Malignancy - Past Medical History Cardiac Medical History: Denies: Hx Atrial Fibrillation, Hx Coronary Artery Disease, Hx DVT, Hx Hypercholesterolemia, Hx Hypertension, Hx Pulmonary Embolism Pulmonary Medical History: Reports: Hx Pneumonia, Hx Sleep Apnea Denies: Hx Asthma, Hx COPD, Hx Tuberculosis Neurological Medical History: Denies: Hx Seizures Endocrine Medical History: Denies: Hx Diabetes Mellitus Type 1, Hx Diabetes Mellitus Type 2, Hx Hyperthyroidism, Hx Hypothyroidism GI Medical History: Denies: Hx Cirrhosis, Hx Crohn's Disease, Hx Gastroesophageal Reflux Disease, Hx Hepatitis, Hx Ulcerative Colitis Musculoskeletal Medical History: Denies Hx Arthritis, Denies Hx Fibromyalgia Skin Medical History: Denies Hx Eczema, Denies Hx Psoriasis Psychiatric Medical History: Reports: Hx Depression, Hx Schizoaffective Disorder Infectious Medical History: Denies: Hx Hepatitis Past Surgical History: Reports: Other - Thoracentesis. Denies: Hx Hysterectomy, Hx Pacemaker - Immunizations Hx Pneumococcal Vaccination: 11/25/12 Physical Exam - Vital signs Vitals: Temp Pulse Resp BP Pulse Ox 98.7 F 88 20 113/79 97 07/02/20 13:58 07/02/20 13:58 07/02/20 13:58 07/02/20 13:58 07/02/20 13:58 Course - Re-evaluation Re-evalutation: 07/02/20 16:17 Patient's lab work does not show acute emergent abnormalities. Mild hypokalemia, cardiac labs negative, chest x-ray negative. Patient was not found to have PE on CT of the chest in May and she is on Eliquis currently making PE much less likely. She is in no distress in the room is not hypoxic is not significantly tachycardic does not become dyspneic with speaking. Will COVID test patient person under investigation follow-up PCP. Creatinine 2.14 today within patient's baseline - Vital Signs Vital signs: Temp Pulse Resp BP Pulse Ox 98.8 F 88 16 133/77 H 96 07/02/20 16:01 07/02/20 13:58 07/02/20 16:01 07/02/20 16:01 07/02/20 16:01 - Laboratory Result Diagrams: 07/02/20 14:55 07/02/20 14:55 Laboratory results interpreted by me: 07/02/20 07/02/20 07/02/20 14:55 14:55 14:55 RBC 2.95 L Hgb 10.8 L Hct 30.1 L MCV 102 H MCH 36.6 H Metamyelocytes % 2 H Sodium 135.3 L Potassium 3.2 L Chloride 97 L BUN 23 H Creatinine 2.14 H Est GFR ( Amer) 30 L Est GFR (MDRD) Non-Af 25 L Glucose 168 H Direct Bilirubin 0.5 H Alkaline Phosphatase 171 H NT-Pro-B Natriuret Pep 234 H Discharge - Discharge Clinical Impression: Hypokalemia, Person under investigation for COVID-19 Dyspnea Qualifiers: Dyspnea type: shortness of breath Qualified Code(s): R06.02 - Shortness of breath; R06.00 - Dyspnea, unspecified; R06.01 - Orthopnea Chronic renal insufficiency Qualifiers: Chronic kidney disease stage: unspecified stage Qualified Code(s): N18.9 - Chronic kidney disease, unspecified Condition: Stable Disposition: HOME, SELF-CARE Additional Instructions: You are considered a person under investigation for COVID-19 at this time, self quarantine at home pending test results which usually take 2 to 5 days you should hear from someone at the hospital about your test results. Your heart labs today your EKG and your chest x-ray all showed no acute abnormalities. Your creatinine was 2.14 which is around the range you have normally stayed at when you have been here previously. Your potassium was slightly low today, make sure you are increasing foods that contain potassium such as green leafy vegetables, bananas which will help keep this elevated. Call your primary care provider tomorrow to schedule follow-up in the office for reevaluation return for worsening condition Referrals: [facility] [Primary Care Provider] - Follow up as needed
--- NOTE | 2020-07-02 15:16 | RADIOLOGY REPORT (SQ) ---
EXAM DESCRIPTION: CHEST SINGLE VIEW IMAGES COMPLETED DATE/TIME: 07/02/2020 2:50 pm REASON FOR STUDY: sob COMPARISON: Chest radiograph 05/14/2020; CT chest 05/31/2020 NUMBER OF VIEWS: One view. TECHNIQUE: Single frontal radiographic view of the chest acquired. LIMITATIONS: None. FINDINGS: LUNGS AND PLEURA: Calcifications along the left major fissure are unchanged from the kate rison studies. No new opacities, masses or pneumothorax. No pleural effusion. MEDIASTINUM AND HILAR STRUCTURES: No masses. Contour normal. HEART AND VASCULAR STRUCTURES: Heart normal in size. Normal vasculature. BONES: No acute findings. HARDWARE: None in the chest. OTHER: No other significant finding. IMPRESSION: NO ACUTE PULMONARY PROCESS. TECHNICAL DOCUMENTATION: JOB ID: [id number] 2010 [employer]- All Rights Reserved Reading location - IP/workstation name: [email or web address]
[2020-07-02 15:17] LABS: APPEARANCE,URINE CLEAR; BILIRUBIN,URINE NEGATIVE (NEGATIVE); COLOR,URINE STRAW; GLUCOSE, URINE NEGATIVE (NEGATIVE); KETONES,URINE NEGATIVE (NEGATIVE); LEUKOCYTE ESTERASE,URINE NEGATIVE (NEGATIVE); NITRITE,URINE NEGATIVE (NEGATIVE); PROTEIN,URINE NEGATIVE (NEGATIVE); URINE SPECIFIC GRAVITY 1.002; UROBILINOGEN,URINE NEGATIVE mg/dL (<2.0)
[2020-07-02 15:21] LABS: INTERNATIONAL RATION (INR) 1.05; PROTHROMBIN TIME 13.9 SEC (11.4-15.4)
[2020-07-02 15:27] LABS: HEMATOCRIT 30.1 % (36.0-47.0); HEMOGLOBIN 10.8 g/dL (12.0-15.5); MEAN CORPUSCULAR HEMOGLOBIN 36.6 pg (27.0-33.4); MEAN CORPUSCULAR HGB CONC 35.9 g/dL (32.0-36.0); MEAN CORPUSCULAR VOLUME 102 fl (80-97); PLATELET COUNT 203 10^3/uL (150-450); RED BLOOD COUNT 2.95 10^6/uL (3.72-5.28); RED CELL DISTRIBUTION WIDTH 13.4 % (11.5-14.0); WHITE BLOOD COUNT 7.6 10^3/uL (4.0-10.5)
[2020-07-02 15:32] LABS: ALBUMIN 4.1 g/dL (3.5-5.0); ALKALINE PHOSPHATASE 171 U/L (38-126); ANION GAP 13 (5-19); ASPARTATE AMINO TRANSFERASE 23 U/L (14-36); BILIRUBIN,DIRECT 0.5 mg/dL (0.0-0.4); BILIRUBIN,TOTAL 0.6 mg/dL (0.2-1.3); BLOOD UREA NITROGEN 23 mg/dL (7-20); CALCIUM 9.6 mg/dL (8.4-10.2); CARBON DIOXIDE 25 mmol/L (22-30); CHLORIDE 97 mmol/L (98-107); GLUCOSE 168 mg/dL (75-110); POTASSIUM 3.2 mmol/L (3.6-5.0); TOTAL PROTEIN 7.2 g/dL (6.3-8.2)
[2020-07-02] MEDS ORDERED: POTASSIUM CHLORIDE 10 MEQ TABLET.ER PO ONE (15:39)
[2020-07-02 15:40] LABS: NT PRO BNP 234 pg/mL (<125)
[2020-07-02 15:46] LABS: TROPONIN I < 0.012 ng/mL
[2020-07-02 15:47] LABS: ABSOLUTE LYMPHOCYTES# (MANUAL) 2.6 10^3/uL (0.5-4.7); ABSOLUTE MONOCYTES # (MANUAL) 0.4 10^3/uL (0.1-1.4); BASOPHILS % (MANUAL) 0 % (0-2); EOSINOPHILS % (MANUAL) 5 % (0-6); LYMPHOCYTES % (MANUAL) 34 % (13-45); METAMYELOCYTES % (MANUAL) 2 % (0-1); MONOCYTES % (MANUAL) 5 % (3-13); SEGMENTED NEUTROPHILS % (MAN) 54 % (42-78); TOTAL CELLS COUNTED 100
[2020-07-02 15:48] LABS: PLATELET CLUMPS PRESENT; PLATELET COMMENT ADEQUATE
[2020-07-02 16:14] VITALS: BP 133/77
--- NOTE | 2020-07-03 02:17 | EKG REPORT ---
SEVERITY:- NORMAL ECG - SINUS RHYTHM : Confirmed by: Simone Weber MD 03-Jul-2020 02:16:32
== END 2020-07-02 16:29 | disposition home or self-care (01) ==
LOC: ER 13:48
DX: N18.9 Chronic kidney disease, unspecified (principal); E87.6 Hypokalemia; R06.02 Shortness of breath; R06.01 Orthopnea; R06.00 Dyspnea, unspecified; E66.01 Morbid (severe) obesity due to excess calories; I50.9 Heart failure, unspecified; Z20.828 Contact with and (suspected) exposure to other viral communicable diseases
CPT/HCPCS: 93005; 99285; 36415; 85025; 85610; 87635; 80053; 81001; 84484; 83880; 71045; 93010; C9803